=== PATIENT | female | born 1995 | race Caucasian/White ===

== ENCOUNTER → 2025-01-03 | Day surgery (SDC) | payer BC ==
[~2025-01-03] MED LIST: ACETAMINOPHEN 1000 MG/100 ML 100 ML IV ONE; APPLE CIDER VI1 EAC3; COLLAGEN 15001 EACH; DEXAMETHASONE SOD PHOS INJ 4 MG/ML SDV ONE; FENTANYL CITRATE/PF 100MCG/2 ML INJ ONE; LIDOCAINE HCL 2% LOCAL INJ 5 ML SDV VIAL INJ ONE; MAG GLYCINATE100 MG; MIDAZOLAM HCL 2 MG/2 ML VIAL ONE; MOUNJARO2.5 MG/0.5; MULTI-VITAMIN1 EACH PO; ONDANSETRON HCL INJ 2MG/ML 2ML 2 MG/ML VIAL ONE; PROPOFOL IV EMULSION 10 MG/ML 20 ML VIAL ONE; ROCURONIUM BROMIDE 1 ML IV ONE; SUGAMMADEX SODIUM 200 MG/2 ML VIAL IV ONE
[2025-01-03] MEDS: LACTATED RINGER'S 1,000 ML ONE (08:24)
[2025-01-03 09:43] VITALS: TEMP 97.2
[2025-01-03] MEDS: KETOROLAC TROMETHAMINE 30 MG/ML VIAL ONE (10:00)
[2025-01-03 10:55] VITALS: BP 111/72; PULSE 79; RESP 15; O2SAT 98
== END | disposition home or self-care (01) ==
LOC: OR 05:28
PROVIDERS: ATTEND Otolaryngology Otolaryngology/Facial Plastic Surgery
DX: J34.2 Deviated nasal septum (principal); J34.89 Other specified disorders of nose and nasal sinuses; Z88.4 Allergy status to anesthetic agent; Z79.85 Long-term (current) use of injectable non-insulin antidiabetic drugs
CPT/HCPCS: 30520; 81025; 88304; 88311; J0131; J1100; J1885; J2003; J2250; J2405; J2704; J3010; J7121; 88300